=== PATIENT | female | born 1980 | race Caucasian/White ===

== ENCOUNTER 2017-04-04 10:02 | Emergency (ER) | payer BC, MEDICAID ==
[2017-04-04 10:07] VITALS: RESP 18; TEMP 99.4
[2017-04-04] MEDS ORDERED: KETOROLAC 30 MG/ML 1 ML VIAL IVP STA (10:35)
[2017-04-04] MEDS ORDERED: SODIUM CHLORIDE 0.9% 1,000 ML IV STA (10:35)
[2017-04-04] MEDS ORDERED: IPRATROPIUM-ALBUTEROL 3 ML NEB INHALATION STA (10:35)
--- NOTE | 2017-04-04 10:39 | ED ---
Chest Pain HPI - General Chief Complaint: Chest Pain Stated Complaint: Chest pain Time Seen by Provider: 04/04/17 10:25 Source: patient, RN notes reviewed Mode of arrival: ambulatory Limitations: no limitations - History of Present Illness Initial Comments: This is a 37-year-old female who benign past medical history states she had the onset yesterday of a cough with some minimal phlegm fevers chills sweats rhinorrhea laryngitis and burning midsternal chest pain gets worse with movement and deep breathing. She does not smoke she has no known history of lung disease she has some exertional dyspnea however. No other complaints at this time MD Complaint: chest pain, other - Related Data Previous Rx's Medication Instructions Recorded Amoxicillin/Potassium Clav 1 tab PO Q12HR #20 tab 04/04/17 [Augmentin 875-125 Tablet] Ibuprofen 800 mg PO Q6HR PRN #20 tablet 04/04/17 Allergies Allergy/AdvReac Type Severity Reaction Status Date / Time No Known Allergies Allergy Verified 04/04/17 10:15 Review of Systems ROS Statement: Those systems with pertinent positive or pertinent negative responses have been documented in the HPI. ROS Other: All systems not noted in ROS Statement are negative. EKG Findings - EKG Results: EKG: interpreted by SHADY, sinus rhythm (EKG shows sinus rhythm of 88 appear of 01 40 QRS duration 80 daily since QTC of 392/474 left atrial enlargement) Past Medical History Past Medical History: No Reported History History of Any Multi-Drug Resistant Organisms: None Reported Past Surgical History: Appendectomy, Section, Tonsillectomy Additional Past Surgical History / Comment(s): laparscopy Past Psychological History: No Psychological Hx Reported Smoking Status: Current every day smoker Past Alcohol Use History: Occasional Past Drug Use History: None Reported General Exam - General Exam Comments Initial Comments: This a well-developed well-nourished awake alert oriented 3 female Limitations: no limitations General appearance: alert, anxious Head exam: Present: atraumatic, normocephalic, normal inspection Eye exam: Present: normal appearance, PERRL, EOMI. Absent: scleral icterus, conjunctival injection, periorbital swelling ENT exam: Present: other (Hyperemic pharynx with no exudate seen. Small of fluid seen behind tympanic membranes bilaterally no erythema however. Boggy swollen nasal mucosa minimal clear drainage seen) Neck exam: Present: normal inspection. Absent: tenderness, meningismus, lymphadenopathy Respiratory exam: Present: decreased breath sounds Cardiovascular Exam: Present: normal rhythm, tachycardia, normal heart sounds. Absent: systolic murmur, diastolic murmur, rubs, gallop, clicks GI/Abdominal exam: Present: soft, normal bowel sounds. Absent: distended, tenderness, guarding, rebound, rigid Extremities exam: Present: normal inspection, full ROM, normal capillary refill. Absent: tenderness, pedal edema, joint swelling, calf tenderness Back exam: Present: normal inspection Neurological exam: Present: alert, oriented X3, CN II-XII intact Psychiatric exam: Present: normal affect, normal mood Skin exam: Present: warm, dry, intact, normal color. Absent: rash Course Vital Signs 04/04/17 04/04/17 04/04/17 10:04 10:46 10:52 Temperature 99.4 F Pulse Rate 109 H 104 H 100 Respiratory 18 Rate Blood Pressure 126/86 O2 Sat by Pulse 98 Oximetry Chest Pain MDM - MDM I did review the imaging and reports no acute findings no evidence of pulmonary embolism though the study was not perfect. Clinically patient appears to have sinusitis and bronchitis she does have elevated white blood cell count and the left shift indicative of a bacterial etiology patient will be placed on appropriate medication. Disposition Clinical Impression: Bronchitis, Nasopharyngitis acute Disposition: HOME SELF-CARE Condition: Good Instructions: Acute Bronchitis (ED), Rhinosinusitis (ED) Prescriptions: Amoxicillin/Potassium Clav [Augmentin 875-125 Tablet] 1 tab PO Q12HR #20 tab Ibuprofen 800 mg PO Q6HR PRN #20 tablet PRN Reason: Pain Referrals: Ina Jackson MD [REFERRING] - 1-2 days
[2017-04-04 11:01] LABS: Basophils % (A) 0 %; CH 28.3; CHCM 32.2; Eosinophils # (A) 0.1 k/uL (0-0.7); Eosinophils % (A) 1 %; HDW 2.66; HGB 12.7 gm/dL (11.4-16.0); Luc # (Auto) 0.16; Luc % (Auto) 1; Lymphocytes # (A) 1.4 k/uL (1.0-4.8); Lymphocytes % (A) 10 %; MCH 28.8 pg (25.0-35.0); MCHC 32.6 g/dL (31.0-37.0); MCV 88.3 fL (80.0-100.0); Mean Platelet Volume 8.2; Monocytes # (A) 0.6 k/uL (0-1.0); Monocytes % (A) 5 %; Neutrophils # (A) 11.9 k/uL (1.3-7.7); Neutrophils % (A) 84 %; RBC 4.42 m/uL (3.80-5.40); RDW 13.8 % (11.5-15.5); WBC 14.3 k/uL (3.8-10.6); WBC (Perox) 14.94
[2017-04-04 11:12] LABS: Anion Gap 10 mmol/L; Blood Urea Nitrogen 5 mg/dL (7-17); Calcium 9.4 mg/dL (8.4-10.2); Carbon Dioxide 25 mmol/L (22-30); Chloride 104 mmol/L (98-107); Glucose 95 mg/dL (74-99); Magnesium 1.8 mg/dL (1.6-2.3); Non-African American GFR(MDRD) >60 (>60 ml/min/1.73 sqM); Potassium 4.1 mmol/L (3.5-5.1); Sodium 139 mmol/L (137-145)
[2017-04-04 11:13] LABS: ALT 17 U/L (9-52); AST 16 U/L (14-36); Alkaline Phosphatase 70 U/L (38-126); Total Bilirubin 0.6 mg/dL (0.2-1.3); Total Protein 7.4 g/dL (6.3-8.2)
--- NOTE | 2017-04-04 11:15 | XR ---
EXAMINATION TYPE: XR chest 2V DATE OF EXAM: 04/04/2017 COMPARISON: 01/17/2013 HISTORY: Chest pain TECHNIQUE: Frontal and lateral views of the chest are obtained. FINDINGS: There is no focal air space opacity. No evidence for pneumothorax. No pleural effusion. The cardiac silhouette size is within normal limits. The osseous structures are grossly intact. IMPRESSION: 1. No acute cardiopulmonary process.
[2017-04-04 11:22] LABS: Creatine Kinase 70 U/L (30-135); Partial Thromboplastin Time 26.4 sec (22.0-30.0); Prothrombin Time 10.6 sec (9.0-12.0)
[2017-04-04 11:35] LABS: Creatine Kinase MB 0.6 ng/mL (0.0-2.4); Troponin I <0.012 ng/mL (0.000-0.034)
[2017-04-04] MEDS ORDERED: RX INFO: IV CONTRAST WAS GIVEN 1 EACH MISC MISCELLANE PRN (11:53)
--- NOTE | 2017-04-04 12:53 | CT ---
EXAMINATION TYPE: CT angio chest DATE OF EXAM: 04/04/2017 COMPARISON: NONE HISTORY: Chest pain, midsternal CT DLP: 353.70 mGycm. Automated Exposure Control for Dose Reduction was Utilized. CONTRAST: CTA scan of the thorax is performed with IV Contrast, patient injected with 100 ml mL of Omnipaque 30 0, pulmonary embolism protocol. MIP Images are created on CT scanner and reviewed. FINDINGS: LUNGS: There is minimal scarring or atelectasis in the left lower lobe particularly posteriorly other dorman lungs are clear. No suspicious parenchymal nodule or mass is present bilaterally. There is no pleural effusion or pneumothorax seen bilaterally. The tracheobronchial tree is patent. MEDIASTINUM: There is suboptimal bolus with poor equal contrast seen in right and left heart systems and more dense contrast in SVC. There is no large central pulmonary embolism, smaller segmental and s ubsegmental PE cannot be excluded on this exam. There are no greater than 1 cm hilar or mediastinal lymph nodes. No cardiomegaly or pericardial effusion is seen. OTHER: There is mild multilevel spurring in the thoracic spine. IMPRESSION: 1. Suboptimal study without central pulmonary embolism, smaller PE though felt not presently cannot b e excluded on this study. 2. No suspicious acute pulmonary process.
[2017-04-04 14:00] VITALS: BP 114/61; PULSE 81
== END 2017-04-04 13:58 | disposition home or self-care (01) ==
LOC: EC 10:02
DX: J00 Acute nasopharyngitis [common cold] (principal); J40 Bronchitis, not specified as acute or chronic; R07.9 Chest pain, unspecified; F17.200 Nicotine dependence, unspecified, uncomplicated
CPT/HCPCS: 99285 ×2; 96374 ×2; 36415; 94640; 93005; 85379; 83880; 80053; 82550; 82553; 83735; 84484; 85025; 85610; 85730; 87502; 71020; 71275; Q9967; J1885

== ENCOUNTER 2017-05-14 16:54 | Emergency (ER) | payer MEDICAID ==
[2017-05-14 17:20] VITALS: BP 127/63; PULSE 77; RESP 18; TEMP 98.5
--- NOTE | 2017-05-14 17:53 | ED ---
Lower Extremity Injury HPI - General Chief Complaint: Extremity Injury, Lower Stated Complaint: Knee Pain Time Seen by Provider: 05/14/17 17:42 Source: patient, RN notes reviewed Mode of arrival: ambulatory Limitations: no limitations - History of Present Illness Initial Comments: This is a 37-year-old female who presents to the emergency department with chief complaint of left knee injury. Patient states that on Friday she slipped in her kitchen. She states she tried to catch her fall and her left leg fully extended and she felt a snap behind her knee. Patient states that pain has gotten progressively worse over the last couple of days. She states that pain is worse when she walks on it for too long or if she goes from a sitting to standing position. Patient states pain is localized to to back of the knee, medial knee and behind the kneecap. She describes the pain as burning. She reports that she has tried using ice, Motrin and heat with minimal relief. Denies fever, chills, chest pain, shortness of breath, abdominal pain, nausea or vomiting, constipation or diarrhea, dysuria or hematuria, numbness or tingling, headache or vision changes. - Related Data Previous Rx's Medication Instructions Recorded Ibuprofen 800 mg PO Q6HR PRN #20 tablet 04/04/17 Allergies Allergy/AdvReac Type Severity Reaction Status Date / Time No Known Allergies Allergy Verified 05/14/17 17:19 Review of Systems ROS Statement: Those systems with pertinent positive or pertinent negative responses have been documented in the HPI. ROS Other: All systems not noted in ROS Statement are negative. Past Medical History Past Medical History: No Reported History History of Any Multi-Drug Resistant Organisms: None Reported Past Surgical History: Appendectomy, Section, Tonsillectomy Additional Past Surgical History / Comment(s): laparscopy Past Psychological History: No Psychological Hx Reported Smoking Status: Former smoker Past Alcohol Use History: None Reported Past Drug Use History: None Reported General Exam - General Exam Comments Initial Comments: General: Awake and alert, well-developed; in no apparent distress. HEENT: Head atraumatic, normocephalic. Pupils are equal, round and reactive to light. Extraocular movements intact. Neck: Supple. Normal ROM. Cardiovascular: Regular rate and rhythm. No murmurs, rubs or gallops. Chest symmetrical. Respiratory: Lungs clear to auscultation bilaterally. No wheezes, rales or rhonchi. Normal respiratory effort with no use of accessory muscles. Musculoskeletal: Patient has a limping gait. There is tenderness on palpation of posterior knee and medial knee. There is mild swelling noted without erythema. Pain is elicited with valgus stress and full extension/flexion of left knee. Sensation is intact. Pedal pulses are 2+ equal and palpable bilaterally. Skin: [place], warm and dry without rashes or lesions. Neurological: Alert and oriented x3. CN II-XII grossly intact. Speech is fluent and answers are appropriate. No focal neuro deficits. Psychiatric: Normal mood and affect. No overt signs of depression or anxiety noted. Limitations: no limitations Course Vital Signs 05/14/17 17:18 Temperature 98.5 F Pulse Rate 77 Respiratory 18 Rate Blood Pressure 127/63 O2 Sat by Pulse 98 Oximetry Medical Decision Making - Medical Decision Making This is a 37-year-old female who presents to the emergency department with chief complaint of left knee injury. Patient has a limping gait and knee is tender on palpation at medial and posterior aspects. Increased pain with valgus stress. X-ray revealed no acute abnormalities. Left knee was placed in a knee immobilizer. Patient tolerated well without complications. Neurovascularly intact. Patient will be discharged home with referral to orthopedics to follow up within 1-2 days. Patient is in agreement and voiced understanding. All questions were answered. - Radiology Data Radiology results: report reviewed Left knee x-ray findings: There is no acute fracture/dislocation evident in the left knee. The compartment joint spaces appear within normal limits. Overlying soft tissue appears unremarkable. Impression: There is no acute fracture dislocation of the left knee. No significant change from prior. Disposition Clinical Impression: Acute internal derangement of knee Disposition: HOME SELF-CARE Condition: Good Instructions: Knee Sprain (ED) Additional Instructions: Please follow up with Dr. Walters, orthopedics within 1-2 days. Please follow up with primary care provider within 1-2 days. Return to emergency department if symptoms should worsen or any concerns arise. Referrals: None,Stated [Primary Care Provider] - 1-2 days Lucio Walters MD [STAFF PHYSICIAN] - 1-2 days Time of Disposition: 18:30
--- NOTE | 2017-05-14 18:08 | XR ---
EXAMINATION TYPE: XR knee complete LT DATE OF EXAM: 05/14/2017 CLINICAL HISTORY: Left knee pain TECHNIQUE: Three views of the left knee are obtained. COMPARISON: Left knee x-ray February 11, 2015. FINDINGS: There is no acute fracture/dislocation evident in left knee. The tri-compartment joint sp aces appear within normal limits. The overlying soft tissue appears unremarkable. IMPRESSION: There is no acute fracture or dislocation in the left knee. No significant change from p rior.
== END 2017-05-14 18:40 | disposition home or self-care (01) ==
LOC: EC 16:54
DX: S89.92XA Unspecified injury of left lower leg, initial encounter (principal); Z87.891 Personal history of nicotine dependence; W01.0XXA Fall on same level from slipping, tripping and stumbling without subsequent striking against object, initial encounter; Y92.090 Kitchen in other non-institutional residence as the place of occurrence of the external cause
CPT/HCPCS: 99283; 73562; L1830

== ENCOUNTER 2017-08-14 12:50 | Emergency (ER) | payer MEDICAID ==
[2017-08-14 13:02] VITALS: RESP 20
[2017-08-14] MEDS ORDERED: IBUPROFEN 600 MG TAB PO STA (13:16)
[2017-08-14] MEDS ORDERED: ACETAMINOPHEN TAB 500 MG TAB PO STA (13:16)
--- NOTE | 2017-08-14 13:40 | ED ---
URI HPI - General Chief Complaint: Upper Respiratory Infection Stated Complaint: Fever/Cough/Sore Throat Time Seen by Provider: 08/14/17 13:16 Source: patient, RN notes reviewed, old records reviewed Mode of arrival: ambulatory Limitations: no limitations - History of Present Illness Initial Comments: This is a 37 year old female with CC of cough, congestion, fever, chills, sorethroat, diarrhea, and nausea. She states she has had the symptoms for one day. Family members have had the influenza A. She reports no recent motrin or tylenol. - Related Data Previous Rx's Medication Instructions Recorded Ibuprofen 600 mg PO TID #30 tablet 08/14/17 Oseltamivir [Tamiflu] 75 mg PO Q12HR #10 cap 08/14/17 Promethazine/Dextromethorphan 5 ml PO TID #120 ml 08/14/17 [Phenergan DM Syrup] Allergies Allergy/AdvReac Type Severity Reaction Status Date / Time No Known Allergies Allergy Verified 08/14/17 12:59 Review of Systems ROS Statement: Those systems with pertinent positive or pertinent negative responses have been documented in the HPI. ROS Other: All systems not noted in ROS Statement are negative. Past Medical History Past Medical History: No Reported History History of Any Multi-Drug Resistant Organisms: None Reported Past Surgical History: Appendectomy, Section, Tonsillectomy Additional Past Surgical History / Comment(s): laparscopy Past Psychological History: No Psychological Hx Reported Smoking Status: Former smoker Past Alcohol Use History: None Reported Past Drug Use History: None Reported General Exam - General Exam Comments Initial Comments: Well-appearing 37-year-old female. No distress. Limitations: no limitations General appearance: alert, in no apparent distress Head exam: Present: atraumatic, normocephalic, normal inspection Eye exam: Present: normal appearance, PERRL, EOMI. Absent: scleral icterus, conjunctival injection, periorbital swelling ENT exam: Present: normal exam, mucous membranes moist Neck exam: Present: normal inspection. Absent: tenderness, meningismus, lymphadenopathy Respiratory exam: Present: normal lung sounds bilaterally. Absent: respiratory distress, wheezes, rales, rhonchi, stridor Cardiovascular Exam: Present: regular rate, normal rhythm, normal heart sounds. Absent: systolic murmur, diastolic murmur, rubs, gallop, clicks GI/Abdominal exam: Present: soft, normal bowel sounds. Absent: distended, tenderness, guarding, rebound, rigid Extremities exam: Present: normal inspection, full ROM, normal capillary refill. Absent: tenderness, pedal edema, joint swelling, calf tenderness Back exam: Present: normal inspection Neurological exam: Present: alert, oriented X3, CN II-XII intact Psychiatric exam: Present: normal affect, normal mood Skin exam: Present: warm, dry, intact, normal color. Absent: rash Course Vital Signs 08/14/17 08/14/17 12:59 14:23 Temperature 99.9 F H 99.2 F Pulse Rate 100 89 Respiratory 20 20 Rate Blood Pressure 114/79 101/55 O2 Sat by Pulse 97 99 Oximetry Medical Decision Making - Medical Decision Making This patient is a 37-year-old female presents today to complete of fever chills congestion cough. You watch is a sore throat. All of her family members had influenza a. Patient was sent down from her office at the hospital for testing. Patient chest x-ray was really normal. Once you clear. Patient had a fever, was given Motrin and Tylenol. It's likely patient has influenza. Will treat her with TAmiflu. Discuss supportive measures. Discussed return parameters. All questions were answered. - Radiology Data Radiology results: report reviewed Patient's chest x-ray is negative for any acute process. Disposition Clinical Impression: Influenza Disposition: HOME SELF-CARE Condition: Good Instructions: Influenza (ED) Additional Instructions: Patient is alternate Motrin and Tylenol every 4 hours. Take Tamiflu prescription and use cough syrup as directed. Patient should return to the emergency department if any alarming signs or symptoms occur. Prescriptions: Ibuprofen 600 mg PO TID #30 tablet Oseltamivir [Tamiflu] 75 mg PO Q12HR #10 cap Promethazine/Dextromethorphan [Phenergan DM Syrup] 5 ml PO TID #120 ml Referrals: None,Stated [Primary Care Provider] - 1-2 days Migdalia Morris MD [STAFF PHYSICIAN] - 1-2 days Ean Emmanuel MD [STAFF PHYSICIAN] - 1-2 days Time of Disposition: 14:13
--- NOTE | 2017-08-14 14:12 | XR ---
EXAMINATION TYPE: XR chest 2V DATE OF EXAM: 08/14/2017 COMPARISON: 04/04/2017 HISTORY: Chest pain TECHNIQUE: Frontal and lateral views of the chest are obtained. FINDINGS: There is no focal air space opacity. No evidence for pneumothorax. No pleural effusion. The cardiac silhouette size is within normal limits. The osseous structures are grossly intact. IMPRESSION: 1. No acute cardiopulmonary process.
[2017-08-14 14:24] VITALS: BP 101/55; PULSE 89; TEMP 99.2
== END 2017-08-14 14:23 | disposition home or self-care (01) ==
LOC: EC 12:50
DX: J11.1 Influenza due to unidentified influenza virus with other respiratory manifestations (principal); Z87.891 Personal history of nicotine dependence; Z90.89 Acquired absence of other organs; Z83.1 Family history of other infectious and parasitic diseases
CPT/HCPCS: 71046; 99284

== ENCOUNTER 2017-10-06 07:59 | Emergency (ER) | payer MEDICAID ==
[2017-10-06] MEDS ORDERED: ORPHENADRINE 30 MG/ML 2 ML VIAL IM STA (08:26)
[2017-10-06] MEDS ORDERED: KETOROLAC 60 MG/2 ML VIAL IM STA (08:26)
--- NOTE | 2017-10-06 08:30 | ED ---
Back Pain HPI - General Chief Complaint: Back Pain/Injury Stated Complaint: Back pain Time Seen by Provider: 10/06/17 08:15 Source: patient, RN notes reviewed, old records reviewed Limitations: no limitations - History of Present Illness Initial Comments: this is a 29-year-old female presents emergency department today chief complaint of lower back pain. She reports that on Friday morning she is bending over to put her granddaughter in her playpen.she states that she felt a pull in her lower back. She states since then she's been having some pain way down the left leg. She has a history of known degenerative disc disease. She' s been taking naproxen. She reports very little relief. She denies any saddle anesthesias. Denies any chest pain shortness breath, abdominal pain or change in urination. She relates the pain is worse with movements.Patient denies any recent fever, chills, shortness of breath, chest pain, abdominal pain, nausea vomiting, numbness or tingling, dysuria or hematuria, constipation or diarrhea, headaches or visual changes, or any other current symptoms - Related Data Previous Rx's Medication Instructions Recorded Acetaminophen-Codeine 300-30mg 1 tab PO Q6H PRN #15 tablet 10/06/17 [Tylenol #3] Baclofen [Lioresal] 5 mg PO TID #15 tablet 10/06/17 Dexamethasone 0.75 mg PO DAILY #12 tab 10/06/17 Allergies Allergy/AdvReac Type Severity Reaction Status Date / Time No Known Allergies Allergy Verified 10/06/17 08:09 Review of Systems ROS Statement: Those systems with pertinent positive or pertinent negative responses have been documented in the HPI. ROS Other: All systems not noted in ROS Statement are negative. Past Medical History Past Medical History: No Reported History History of Any Multi-Drug Resistant Organisms: None Reported Past Surgical History: Appendectomy, Section, Tonsillectomy Additional Past Surgical History / Comment(s): laparscopy Past Psychological History: No Psychological Hx Reported Smoking Status: Former smoker Past Alcohol Use History: Occasional Past Drug Use History: None Reported General Exam - General Exam Comments Initial Comments: this is a 29-year-old female. Alert and oriented. No distress. Limitations: no limitations General appearance: alert, in no apparent distress Head exam: Present: atraumatic, normocephalic, normal inspection Eye exam: Present: normal appearance, PERRL, EOMI. Absent: scleral icterus, conjunctival injection, periorbital swelling ENT exam: Present: normal exam, mucous membranes moist Neck exam: Present: normal inspection. Absent: tenderness, meningismus, lymphadenopathy Respiratory exam: Present: normal lung sounds bilaterally. Absent: respiratory distress, wheezes, rales, rhonchi, stridor Cardiovascular Exam: Present: regular rate, normal rhythm, normal heart sounds. Absent: systolic murmur, diastolic murmur, rubs, gallop, clicks Extremities exam: Present: normal inspection, full ROM, normal capillary refill. Absent: tenderness, pedal edema, joint swelling, calf tenderness Back exam: Present: normal inspection, tenderness (tenderness over left sciatic notch.) Neurological exam: Present: alert, oriented X3, CN II-XII intact Psychiatric exam: Present: normal affect, normal mood Skin exam: Present: warm, dry, intact, normal color. Absent: rash Course Vital Signs 10/06/17 08:07 Temperature 97.8 F Pulse Rate 96 Respiratory 18 Rate Blood Pressure 127/73 O2 Sat by Pulse 97 Oximetry Medical Decision Making - Medical Decision Making 29-year-old female presents for a steroid today chief complaint of lower back pain radiates down the left leg. Patient was given IM pain injections including Norflex and Toradol. She reports some mild relief. At this time patient is x-ray showed degenerative changes at L5-S1 but no other fractures noted. Patient will be started on steroid taper, pulse relaxers and pain medication. Discussed appropriate follow-up with primary care provider about possibility of [place]. Discussed using stretching methods and massage. Patient agrees to treatment plan will comply. Return parameters were discussed. - Radiology Data Radiology results: report reviewed Lumbar spine x-rays reviewed and shows no fractures or dislocation. Moderate degenerative changes and L5-S1. Disposition Clinical Impression: Acute low back pain, Left sided sciatica Disposition: HOME SELF-CARE Condition: Good Instructions: Acute Low Back Pain (ED), Sciatica (ED) Additional Instructions: patient is to alternate heat and ice. Take the medications as prescribed. Follow-up with primary care physician or orthopedic physician if symptoms continue persist. Return to the emergency department if any alarming signs or symptoms occur. Prescriptions: Acetaminophen-Codeine 300-30mg [Tylenol #3] 1 tab PO Q6H PRN #15 tablet PRN Reason: Pain Baclofen [Lioresal] 5 mg PO TID #15 tablet Dexamethasone 0.75 mg PO DAILY #12 tab Referrals: None,Stated [Primary Care Provider] - 1-2 days Migdalia Morris MD [STAFF PHYSICIAN] - 1-2 days Timur Cox MD [STAFF PHYSICIAN] - 1-2 days Time of Disposition: 09:07
--- NOTE | 2017-10-06 08:59 | XR ---
EXAMINATION TYPE: XR lumbar spine 2 or 3V DATE OF EXAM: 10/06/2017 CLINICAL HISTORY: pain TECHNIQUE: Three views of the lumbar spine are submitted. COMPARISON: None. FINDINGS: There are 5 lumbar type vertebral bodies identified. The lumbar spine shows satisfactory alignment w ithout evidence of acute fracture or dislocation. Vertebral body heights are within normal limits. Moderate degenerative narrowing L5-S1. The overlying soft tissue appears unremarkable. IMPRESSION: No acute fracture or dislocation is seen in the lumbar spine. ICD 10 NO FRACTURE, INITIAL EVALUATION
[2017-10-06 09:19] VITALS: BP 118/61; PULSE 72; RESP 16; TEMP 97.9
== END 2017-10-06 09:19 | disposition home or self-care (01) ==
LOC: EC 07:59
DX: M54.42 Lumbago with sciatica, left side (principal); Z87.891 Personal history of nicotine dependence; X50.1XXA Overexertion from prolonged static or awkward postures, initial encounter
CPT/HCPCS: 72100; 99284; 96372 ×2; J2360; J1885

== ENCOUNTER → 2017-10-30 | Outpatient (CLI) | payer MEDICAID ==
--- NOTE | 2017-11-02 13:18 | MR ---
EXAMINATION TYPE: MR lumbar spine wo con DATE OF EXAM: 10/30/2017 COMPARISON: Radiograph's of the lumbar spine dated 10/06/2017 MRI dated 01/31/2016 on the lumbar spine HISTORY: LBP, BLE radiculopathy, lifting injury 1 mo ago TECHNIQUE: Multiplanar, multisequence images of the lumbar spine were acquired. FINDINGS: The lumbar vertebral bodies maintain normal vertebral body height and alignment. Mild multi level degenerative endplate changes are seen that are moderate tip to. Otherwise bone marrow is unrem arkable. Multilevel disc desiccation is seen. A small T2/T1 hyperintense vertebral body hemangioma se en of L1 unchanged from the prior. 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 Conus medullaris is un remarkable terminating at L1. L1-L2: Mild disc desiccation. No herniation, protrusion or disc bulging. No canal stenosis is prese nt. Foramina are patent bilaterally. L2-L3: Mild disc desiccation. No herniation, protrusion or disc bulging. No canal stenosis is prese nt. Foramina are patent bilaterally. L3-L4: There is a very small broad-based disc bulge without significant neural foraminal narrowing or spinal canal stenosis. L4-L5: There is a broad-based disc bulge without focality. No significant neural foraminal stenosis o r spinal canal stenosis. L5-S1: There is a focal central disc herniation/disc protrusion superimposed upon a broad-based disc bulge with central annular tear. Again there is minimal minimal foraminal narrowing. No significant s ryan canal stenosis. This is similar to the prior 2016. IMPRESSION: 1. Small central disc herniation at L5-S1, similar to the prior of 2016, creating minimal neural fora shayla narrowing and without significant spinal canal stenosis. 2. Mild progression in the multilevel disc disease with disc desiccation throughout the lumbar spine and new small broad-based disc bulges at L3-L5 without spinal canal stenosis or neural foraminal narr owing.
== END | disposition home or self-care (01) ==
LOC: RADMRIMAIN 18:29
PROVIDERS: ATTEND Physical Medicine & Rehabilitation
DX: M99.73 Connective tissue and disc stenosis of intervertebral foramina of lumbar region (principal); M51.16 Intervertebral disc disorders with radiculopathy, lumbar region
CPT/HCPCS: 72148

== ENCOUNTER → 2018-01-19 | Outpatient (CLI) | payer MEDICAID ==
[2018-01-19 14:03] LABS: Appearance,Urine Clear (Clear); Basophils % (A) 1 %; Bilirubin,Urine Negative (Negative); Blood,Urine Negative (Negative); Color,Urine Yellow; Eosinophils # (A) 0.1 k/uL (0-0.7); Eosinophils % (A) 1 %; Glucose,Urine (UA) Negative (Negative); HCT 39.2 % (34.0-46.0); HGB 12.3 gm/dL (11.4-16.0); Ketones,Urine Negative (Negative); Leukocyte Esterase,Urine Negative (Negative); Lymphocytes # (A) 1.6 k/uL (1.0-4.8); Lymphocytes % (A) 22 %; MCHC 31.5 g/dL (31.0-37.0); MCV 85.8 fL (80.0-100.0); Mean Platelet Volume 7.2; Monocytes # (A) 0.4 k/uL (0-1.0); Monocytes % (A) 6 %; Neutrophils # (A) 5.1 k/uL (1.3-7.7); Neutrophils % (A) 69 %; Nitrite,Urine Negative (Negative); PH, Urine 6.5 (5.0-8.0); Platelet Count 318 k/uL (150-450); Protein,Urine Negative (Negative); RBC 4.57 m/uL (3.80-5.40); RDW 14.9 % (11.5-15.5); Specific Gravity,Urine 1.014 (1.001-1.035); Urobilinogen,Urine <2.0 mg/dL (<2.0); WBC 7.4 k/uL (3.8-10.6)
[2018-01-19 14:08] LABS: Partial Thromboplastin Time 24.2 sec (22.0-30.0); Prothrombin Time 9.9 sec (9.0-12.0)
[2018-01-19 14:11] LABS: Anion Gap 8 mmol/L; Blood Urea Nitrogen 9 mg/dL (7-17); Calcium 9.6 mg/dL (8.4-10.2); Carbon Dioxide 27 mmol/L (22-30); Chloride 101 mmol/L (98-107); Glucose 90 mg/dL (74-99); Potassium 4.5 mmol/L (3.5-5.1); Sodium 136 mmol/L (137-145)
[2018-01-19 14:27] LABS: HCG,Quantitative Serum <2.4 mIU/mL
--- NOTE | 2018-01-19 16:00 | XR ---
EXAMINATION TYPE: XR chest 2V DATE OF EXAM: 01/19/2018 COMPARISON: 08/14/2017 HISTORY: 37-year-old female presurgical testing TECHNIQUE: Frontal and lateral views FINDINGS: Heart normal size. Aorta and pulmonary vasculature within normal limits. No consolidation or pleural effusion. IMPRESSION: No acute cardiopulmonary process.
== END | disposition home or self-care (01) ==
LOC: LABPAT 12:50
PROVIDERS: ATTEND Orthopaedic Surgery Orthopaedic Surgery of the Spine
DX: Z01.818 Encounter for other preprocedural examination (principal); Z01.812 Encounter for preprocedural laboratory examination; M51.36 Other intervertebral disc degeneration, lumbar region; M54.5 Low back pain
CPT/HCPCS: 36415; 71046; 80048; 81003; 84702; 85025; 85610; 85730; 87070

== ENCOUNTER 2018-01-28 08:49 | Inpatient (IN) | payer MEDICAID ==
[2018-01-19 11:03] VITALS: BMI 33.5
[~2018-01-28 08:49] MED LIST: BACITRACIN 50,000 UNIT, POLYMYXIN B 500,000 UNIT in SODIUM CHLORIDE 0.9% IRRIGATIO 1,00... IRRIGATION ONE; DEXAMETHASONE SOD PHOSPHATE 10 MG/ML 1 ML VIAL IV ONE; LIDOCAINE 1% 20 ML VIAL (10MG/ML) FOR IV START INTRADERMA PRN; MIDAZOLAM 2 MG/2 ML VIAL IV PRN; ONDANSETRON 4 MG/2 ML VIAL IVP ONE; SCOPOLAMINE 1.5MG/72HR PATCH TRANSDERM ONE; ceFAZolin 2 GM in SODIUM CHLORIDE 0.9% 100 ML IVPB ONE; ceFAZolin IN SWFI 2 GM/20 ML SYRINGE IVP ONE
[2018-01-28] MEDS: LACTATED RINGERS 1,000 ML IV SCH (09:25)
[2018-01-28] MEDS ORDERED: PHENYLEPHRINE-0.9% NACL SYG 1 MG/10 ML SYRINGE ONE (11:06)
[2018-01-28] MEDS ORDERED: ROCURONIUM BROMIDE 10 MG/ML 10 ML VIAL IV ONE (11:06)
[2018-01-28] MEDS ORDERED: LIDOCAINE 1% INJ 10MG/ML (20 ML MDV) ONE (11:06)
[2018-01-28] MEDS ORDERED: SUCCINYLCHOLINE CHLORIDE 100 MG/5 ML SYR IV ONE (11:06)
[2018-01-28] MEDS ORDERED: MEPERIDINE 50 MG/ML SYRINGE ONE (11:06)
[2018-01-28] MEDS ORDERED: PROPOFOL 10 MG/ML 20 ML VIAL IV ONE (11:06)
[2018-01-28] MEDS ORDERED: fentaNYL (PF) 50 MCG/ML 2 ML AMP ONE (11:06)
[2018-01-28] MEDS ORDERED: MIDAZOLAM 2 MG/2 ML VIAL ONE (11:06)
[2018-01-28] MEDS ORDERED: GELATIN SPONGE,ABSORB (LARGE) 1 EACH SPONGE TOPICAL ONE (11:25)
[2018-01-28] MEDS ORDERED: THROMBIN (BOVINE) 5,000 UNIT VIAL TOPICAL ONE (11:25)
[2018-01-28] MEDS ORDERED: LIDOCAINE 0.5%-EPI 1:200,000 50 ML VIAL SQ ONE (11:25)
[2018-01-28] MEDS ORDERED: LACTATED RINGERS 1,000 ML IV ONE ×2 (11:43→14:29)
--- NOTE | 2018-01-28 13:26 | FL ---
EXAMINATION TYPE: FL guidance operating room, XR lumbar spine 2 or 3V DATE OF EXAM: 01/28/2018 CLINICAL HISTORY: Lumbosacral fusion TECHNIQUE: Fluoroscopy. COMPARISON: None. FINDINGS/IMPRESSION: Fluoroscopic guidance was provided during procedure performed by Dr. Sy. A total of 49 seconds of fluoroscopic time was utilized during the procedure and 5 spot images was acqu ired demonstrating localization of the lumbosacral spine and fusion of the L5-S1 vertebral levels.
[2018-01-28] MEDS ORDERED: HYDROmorphone 1 MG/ML 1 ML SYRINGE IVP PRN (13:40)
[2018-01-28] MEDS ORDERED: MAGNESIUM HYDROXIDE 2,400 MG/10 ML CUP PO PRN (13:40)
[2018-01-28] MEDS ORDERED: BENZOCAINE/MENTHOL LOZENG 1 EACH LOZENGE MUCOUS MEM PRN (13:40)
[2018-01-28] MEDS ORDERED: HYDROcodone/APAP 5-325MG 1 EACH TAB PO PRN (13:41)
[2018-01-28] MEDS ORDERED: ONDANSETRON 4 MG/2 ML VIAL IVP PRN (13:41)
--- NOTE | 2018-01-28 13:50 | P.OP ---
Date of Procedure: 01/28/18 Preoperative Diagnosis: Spondylolisthesis L5-S1, degenerative disc disease L5-S1, low back and lower extremity radiculopathy, disc herniation L5-S1 Postoperative Diagnosis: Same Anesthesia: GETA Pathology: none sent Condition: stable Disposition: PACU Description of Procedure: DESCRIPTION OF PROCEDURE(S): BRIEF OPERATIVE NOTE Preoperative Diagnosis: Degenerative disc disease L5-S1, listhesis L5-S1, disc herniation L5-S1, low back and lower extremity radiculopathy Postoperative Diagnosis: Same Procedure: Laminectomy and decompression L5-S1 Minimally invasive Posterior lateral decompression and facet fusion L5-S1 Minimally invasive Transforaminal lumbar interbody fusion for a 360 fusion L5-S1 Discectomy for decompression L5-S1 Placement of interbody graft L5-S1 Local autogenous bone grafting Harvesting of bone marrow aspirate L5 vertebral body Use of bone graft extenders Surgeon: Dr. Sy Carpenters Supervisor: Ceasar GAGE who is present throughout the entire the case persistence during positioning, dissection, exposure, visualization, and all crucial elements of the case as well as closure. Anesthesia: General anesthesia Estimated blood loss: approximately 100 mL Complications: None apparent Components implanted: K2M minimally invasive Catano pedicle screw system with 4 screws measuring 6.5 mm diameter to rods and 1 Reading interbody cage measuring 7 mm Disposition: To recovery room in good stable condition. OPERATIVE INDICATIONS The patient has had long-standing issues in their lower back and lower extremities. she is found have advanced disc degeneration at L5-S1 with some Modic endplate just. There is some dynamic listhesis as well. She had significant back pain with lower extremity radiculopathy which correlated with her low back and lower extremity symptoms. She is having progressive symptoms despite aggressive conservative care. The patient has been through conservative treatment. she is not having any lasting benefit despite conservative management. We discussed various treatment options including surgery, and the patient wishes to proceed with surgery We discussed the risk, patient's alternatives and benefits of surgery including but not limited to, risk of bleeding risk of infection, risk of need for further surgery, risk of decreased, loss of motion, muscle function, malunion nonunion, hardware failure , nerve damage, paralysis, heart attack, blindness and . OPERATIVE SUMMARY After discussing all the risks, patient alternatives and benefits at length, the patient elected to proceed with surgical intervention, signed informed consent, and presented for their procedure. The patient was seen and examined in the preoperative holding area and the surgical site was marked. The patient was given antibiotics and brought to the operating room. The patient was sedated and intubated by anesthesia in standard fashion. The patient was positioned on to the operating room table in a prone position on the appropriate frame which was well-padded and well molded. We were careful to pad any bony prominences and pressure points. We were careful to maintain the patient's cervical spine and good neutral alignment and position throughout. The patient was prepped and draped in a normal standard fashion. An appropriate timeout and keystone protocol performed. We were able to proceed with the surgery. The local wound area was infiltrated with local anesthetic. I was able utilize C-arm guidance to establish appropriate position over the pedicles bilaterally at the appropriate levels Of L5 and S1. With the appropriate levels confirmed was able to make small stab incisions over the appropriate pedicle sites bilaterally. Utilizing C-arm in his house able to establish a Jamshidi needle over the lateral aspect of the pedicle and advanced the trocar into the pedicle being careful not to breech superiorly inferiorly medially or laterally. Position was confirmed regularly with AP and lateral images on C-arm. I made bilateral incisions approximately 3 cm in length bilaterally over L5-S1. I was able to establish the trocar into the pedicle appropriately into the posterior aspect of the vertebral body bilaterally at the appropriate levels. This was done at each of the pedicle positions and each of the vertebrae. I was able place the guidewire into the trocar and into the vertebral body appropriately under C-arm guidance. Dissection was taken down over the wire to the appropriate starting position for the screw placed. The appropriate length screw was chosen, threaded over the guidewire and screwed appropriately into the pedicle and vertebral body under C-arm guidance in excellent alignment and position with good bony purchase. This is done at each of the screw sites at the appropriate levelsAt L5 and S1 bilaterally. With the screws intact I extended the incision to connect the screw hole sites on the most symptomatic side On the left. I dissected down to establish access over the pars and lamina to the base of the spinous process. I was able to expose the facet joint. The capsule the facet was taken down and showed some facet arthrosis at the joint. I was able to use a combination of curettes and Kerrison rongeurs and a high-speed drill to take down the facet joint and do a facetectomy. Partial laminectomy was also performed. I was able get excellent foraminal decompression and central decompression with undermining across midline to perform a laminectomy centrally and contralaterally. As able get good central decompression. The ligamentum flavum was taken down to further decompress centrally and at bilateral neural foramen. I was able to expose the disc space and visualize the traversing nerve root. Note was made of some disc protrusion at the level causing further compression of the nerve root. I was able to establish a annulotomy at the appropriate level protecting soft tissue and neural structures. Note was made of some disc desiccation at the disc. I performed a complete discectomy with accommodation of curettes and rasps and scrapers. the discectomy provided further decompression. I was able get good endplate preparation at the disc space. there was severe disc height loss and significant disc loss at the L5-S1 interbody space. I sized for the appropriate size interbody spacer protecting the soft tissue and neural structures. The wound was copiously irrigated and suctioned dry. There is no evidence of any dural tear or leak. I was able to pack the disc space with local autogenous bone graft as well as a small amount of bone graft which was also placed into the interbody cage itself. Protecting the soft tissue structures and neural structures I was able place the interbody cage in good alignment and good position with good fit and fill at the interbody space. it was well seated without any protrusion. His issues was confirmed with C-arm guidance. Good hemostasis maintained. There is no evidence of any dural tear or leak. The wound was irrigated and suctioned dry. With the hardware intact, intraoperative C-arm imaging was again taken which showed good alignment and position of the hardware at the appropriate levels At L5 and S1. We were then able to measure, contour and place the rods and appropriate hardware bilaterally. I was able to place capcrews, tighten them down, and torque them with the torque screwdriver appropriately. With this intact I was able to place the local autogenous bone graft with additional bone graft enhancer as necessary into the posterior lateral gutters and over the decorticated facet joint on the right. The remainder of the bone graft was placed over the facet joint on the contralateral side after taking down the facet joint capsule. With the bone graft intact, a stable construct, and good decompression at the appropriate levels, we were able to proceed with closure. Good hemostasis was maintained. There is no evidence of dural tear or leak. The fascia was closed for a watertight closure. he subcuticular tissue was closed with absorbable suture. The wound was cleaned and dried and dressed with the appropriate dressing. The drapes were broken down. The patient was gently rolled back onto their hospital bed being careful to maintain their cervical spine and good neutral alignment and position. They were woken up by anesthesia, extubated, and brought to the recovery room in good stable condition. The patient will be admitted to the hospital for appropriate postoperative care , medical management and monitoring. We will continue to follow them closely about the postoperative course.
[2018-01-28] MEDS: HYDROmorphone 0.5 MG/0.5 ML SYRINGE IVP PRN ×2 (14:15→14:28)
[2018-01-28] MEDS: SODIUM CHLORIDE 0.9% 1,000 ML IV SCH (15:03)
[2018-01-28] MEDS: HYDROcodone/APAP 5-325MG 1 EACH TAB PO PRN ×2 (15:08→20:43)
--- NOTE | 2018-01-28 15:57 | P.CONS ---
History of Present Illness - Reason for Consult Hypotension - History of Present Illness Patient is a pleasant 37-year-old female underwent L5-S1, decompression and facet fusion procedure for her chronic low back pain with severe radiculopathy. Postoperatively patient is comparing of severe low back pain and just received [place]. Patient denied any fever chills patient had pass gas, just came out of for or. Still groggy from anesthesia. Does have a Bob catheter in place. No surgical drains Review of Systems REVIEW OF SYSTEMS: CONSTITUTIONAL: No fever, no malaise, no fatigue. HEENT: No recent visual problems or hearing problems. Denied any sore throat. CARDIOVASCULAR: No chest pain, orthopnea, PND, no palpitations, no syncope. PULMONARY: No shortness of breath, no cough, no hemoptysis. GASTROINTESTINAL: No diarrhea, no nausea, no vomiting, no abdominal pain. Normoactive bowel sounds. NEUROLOGICAL: No headaches, no weakness, no numbness. HEMATOLOGICAL: Denies any bleeding or petechiae. GENITOURINARY: Denies any burning micturition, frequency, or urgency. MUSCULOSKELETAL/RHEUMATOLOGICAL: As mentioned in HPI ENDOCRINE: Denies any polyuria or polydipsia. The rest of the 14-point review of systems is negative. Past Medical History Past Medical History: No Reported History Additional Past Medical History / Comment(s): occ low blood pressure, bulging disk, degenerative disk disease, getting numbness and shooting pain down both legs History of Any Multi-Drug Resistant Organisms: None Reported Past Surgical History: Appendectomy, Section, Tonsillectomy Additional Past Surgical History / Comment(s): laparoscopy (5-6) for ovarian cyst/endometriosis Past Anesthesia/Blood Transfusion Reactions: Previous Problems w/ Anesthesia, Motion Sickness, Postoperative Nausea & Vomiting (PONV) Additional Past Anesthesia/Blood Transfusion Reaction / Comm: woke up during tonsilectomy Smoking Status: Former smoker - Past Family History Sister(s) Family Medical History: Cancer Additional Family Medical History / Comment(s): skin Medications and Allergies Home Medications Medication Instructions Recorded Confirmed Type Ibuprofen 400 mg PO HS 01/19/18 01/28/18 History Allergies Allergy/AdvReac Type Severity Reaction Status Date / Time No Known Allergies Allergy Verified 01/28/18 09:02 Physical Exam Vitals: Vital Signs Temp Pulse Pulse Resp BP Pulse Ox 01/28/18 14:30 72 18 98/55 94 L 01/28/18 14:15 75 18 99/55 95 01/28/18 14:00 81 16 95/53 96 01/28/18 13:46 83 16 98/53 100 01/28/18 13:35 97.6 F 91 16 108/56 100 01/28/18 10:30 71 16 100 01/28/18 09:11 98.1 F 76 115/67 99 Intake and Output 01/28/18 01/28/18 01/28/18 06:59 14:59 22:59 Intake Total 2000 Output Total 325 Balance 1676 Intake: IV 2000 Output: Urine 275 Estimated Blood Loss 50 PHYSICAL EXAMINATION: GENERAL: The patient is alert and oriented x3, not in any acute distress. Well developed, well nourished. HEENT: Pupils are round and equally reacting to light. EOMI. No scleral icterus. No conjunctival pallor. Normocephalic, atraumatic. No pharyngeal erythema. No thyromegaly. CARDIOVASCULAR: S1 and S2 present. No murmurs, rubs, or gallops. PULMONARY: Chest is clear to auscultation, no wheezing or crackles. ABDOMEN: Soft, nontender, nondistended, normoactive bowel sounds. No palpable organomegaly. MUSCULOSKELETAL: Deferred to orthopedic surgery EXTREMITIES: No cyanosis, clubbing, or pedal edema. NEUROLOGICAL: Gross neurological examination did not reveal any focal deficits. SKIN: No rashes. Assessment and Plan Plan: -Perioperative hypotension: Expected postoperatively, continue with IV fluids at present rate monitor clinically. -Status post lumbar laminectomy, decompression L5-S1 with facet fusion: Postoperative pain management and DVT prophylaxis as per primary service -Obesity: Dietary Counseling was provided
[2018-01-28] MEDS: CYCLOBENZAPRINE 10 MG TAB PO PRN (16:52)
[2018-01-28] MEDS: ceFAZolin IN SWFI 2 GM/20 ML SYRINGE IVP SCH (17:58)
[2018-01-28] MEDS: HYDROmorphone 1 MG/ML 1 ML SYRINGE IVP PRN ×2 (18:02→22:39)
[2018-01-29] MEDS: HYDROcodone/APAP 5-325MG 1 EACH TAB PO PRN ×4 (01:24→17:36)
[2018-01-29] MEDS: ceFAZolin IN SWFI 2 GM/20 ML SYRINGE IVP SCH (02:28)
[2018-01-29] MEDS: LACTATED RINGERS 1,000 ML IV SCH (05:27)
[2018-01-29] MEDS: SODIUM CHLORIDE 0.9% 1,000 ML IV SCH ×2 (05:37→17:55)
[2018-01-29 07:05] LABS: Basophils % (A) 0 %; Eosinophils # (A) 0.1 k/uL (0-0.7); Eosinophils % (A) 1 %; HCT 31.6 % (34.0-46.0); HGB 10.3 gm/dL (11.4-16.0); Lymphocytes # (A) 1.6 k/uL (1.0-4.8); Lymphocytes % (A) 17 %; MCH 28.5 pg (25.0-35.0); MCHC 32.5 g/dL (31.0-37.0); MCV 87.6 fL (80.0-100.0); Mean Platelet Volume 8.5; Monocytes # (A) 0.6 k/uL (0-1.0); Monocytes % (A) 6 %; Neutrophils % (A) 75 %; Platelet Count 242 k/uL (150-450); RBC 3.61 m/uL (3.80-5.40); WBC 9.4 k/uL (3.8-10.6)
[2018-01-29 07:14] LABS: Anion Gap 7 mmol/L; Blood Urea Nitrogen 6 mg/dL (7-17); Calcium 8.5 mg/dL (8.4-10.2); Carbon Dioxide 24 mmol/L (22-30); Chloride 105 mmol/L (98-107); Glucose 94 mg/dL (74-99); Sodium 136 mmol/L (137-145)
[2018-01-29] MEDS: HYDROmorphone 1 MG/ML 1 ML SYRINGE IVP PRN ×3 (08:34→23:05)
--- NOTE | 2018-01-29 09:10 | P.PN ---
Progress Note - Text Progress Note Date: 01/29/18 Postoperative day #1 Patient is seen and examined today at bedside. The patient has some pain around the surgical site as expected. Pain is being controlled with medication. She has been able to get up to urinate. She has not had any nausea or vomiting. She was able tolerate some diet for breakfast Physical Exam Afebrile with stable vital signs Abdomen is soft nontender. Chest has good excursion deep and space expiration The incision site is clean dry and intact. No erythema there is no purulence. The initial dressing is somewhat saturated but it is so well sealed. There is no active drainage Extremities have not had neurologic change from prior to surgery. She has sustained dorsal flexion plantarflexion and EHL intact Calves and thighs were soft nontender without evidence of DVT. Assessment/Plan Postoperative day #1 status post minimally invasive decompression and fusion L5- S1 for her degenerative disc disease with stenosis Patient is progressing as expected from the surgery. We can reinforce the dressing as needed we'll plan to change for dry dressing tomorrow We will continue to increase the patient's mobilization with therapy. We will continue pain control with oral or IV medications. We'll continue to follow patient closely. Hopefully she'll be able to continue to mobilize and potentially be discharged home tomorrow or Friday
[2018-01-29] MEDS: CYCLOBENZAPRINE 10 MG TAB PO PRN (11:57)
[2018-01-29] MEDS: SENNOSIDES-DOCUSATE SODIUM 1 EACH TAB PO SCH (11:57)
[2018-01-29] MEDS ORDERED: CALCIUM CARBONATE 500 MG CHEWABLE PO PRN (14:58)
[2018-01-30] MEDS: CYCLOBENZAPRINE 10 MG TAB PO PRN (01:05)
[2018-01-30] MEDS: HYDROcodone/APAP 5-325MG 1 EACH TAB PO PRN ×2 (01:05→07:14)
[2018-01-30] MEDS: HYDROmorphone 1 MG/ML 1 ML SYRINGE IVP PRN (03:51)
[2018-01-30] MEDS: SODIUM CHLORIDE 0.9% 1,000 ML IV SCH ×2 (06:06→21:02)
[2018-01-30] MEDS: SENNOSIDES-DOCUSATE SODIUM 1 EACH TAB PO SCH (07:13)
[2018-01-30] MEDS: LACTATED RINGERS 1,000 ML IV SCH (07:14)
--- NOTE | 2018-01-30 08:37 | P.PN ---
Progress Note - Text Progress Note Date: 01/30/18 Orthopedic Spine Patient is a pleasant 37-year-old female who is seen and examined at the bedside following posterior lateral decompression and fusion performed Friday. Patient states they are doing ok postsurgically. She continues have pain at the surgical sites. She states her left lower extremity radiculopathy symptoms have improved postsurgically. She does feel her left leg feels heavy during ambulation. She has been able to ambulate to the restroom. She changes position on her own but has some difficulty due to pain. Currently does not complain of nausea, vomiting, fever, or chills. Patient states pain has been adequately controlled. Patient is eating and voiding freely without difficulty. She has not had a bowel movement but is passing gas. She denies any abdominal pain. She has been using her incentive spirometer. She continues to receive IV Dilaudid, [place] 5 mg/325 mg and Flexeril 10 mg for pain control. Physical Exam Lumbar Fusion: Status post surgical day number 2 Patient is awake, alert, and oriented 3 Vital signs stable Good chest excursion with deep inspiration and expiration Abdomen soft nontender Dorsiflexion, plantarflexion, and extensor hallucis longus positive sustained bilaterally No signs or symptoms of DVT; no calf pain; pneumatic cuffs not currently intact bilateral lower extremities Dressing is dry and intact some blood under the dressing; no erythema, purulence , or signs of infection Dressing is removed along with Steri-Strips strength physical examination No active drainage from the incision sites; no obvious sign of infection New nonstick Telfa and Tegaderm is placed Neurovascularly intact bilaterally lower extremities Assessment: L5-S1 Minimally invasive posterior lateral decompression and fusion with transforaminal lumbar interbody fusion Low back pain Left lower extremity radiculopathy Plan: 1. Ambulate as tolerated; work with Physical Therapy to increase mobilization 2. Continue pain control with IV and oral medications; will plan to increase Riverside from 5 mg/325 mg up to 7.5 mg/325 mg 1-2 tabs every 4 hours as needed for pain. We'll plan to start trying to decrease her Dilantin IV intake in anticipation for discharge home as early as tomorrow, 01/31/2018. 3. Dressing changed to Telfa and Tegaderm 4. Medical management can continue to manage patient for patient's other medical issues 5. We will continue to follow the patient closely 6. MAPS has been reviewed today. Overall overdose risk score: 190 An "Opioid Start Talking" form has been discussed with the patient. This form has been signed by the patient and myself. Prescriptions are written for [place] 7.5 mg/ 325 mg 1-2 tabs every 6 hours as needed for pain, dispense #56 and Flexeril 10 mg 1 tab 3 times a day as needed for muscle spasms, dispense #90 at discharge. These prescriptions have been signed and placed in the chart. 7. Patient can follow-up with Ceasar Craig PA-C or Dr. Desmond Sy at [facility] in 2-3 weeks following discharge
[2018-01-30] MEDS: HYDROcodone/APAP 7.5-325MG 1 EACH TAB PO PRN ×3 (12:12→21:06)
--- NOTE | 2018-01-30 14:45 | P.PN ---
Subjective Patient is a pleasant 37-year-old female underwent L5-S1, decompression and facet fusion procedure for her chronic low back pain with severe radiculopathy. No overnight events patient pain well-controlled did move her bowel and yesterday. Does have good bowel sounds. Objective - Vital Signs Vital signs: Vital Signs Temp 98.9 F 01/30/18 07:09 Pulse 81 01/30/18 07:09 Resp 14 01/30/18 07:09 BP 109/65 01/30/18 07:09 Pulse Ox 97 01/30/18 07:09 Intake & Output 01/29/18 01/30/18 01/30/18 18:59 06:59 18:59 Intake Total 600 787.5 600 Balance 600 787.5 600 Intake: Intake, IV Titration 600 787.5 600 Amount Sodium Chloride 0.9% 1, 600 787.5 600 000 ml @ 75 mls/hr IV . [id number] MIKE Rx#:[id number] Other: Voiding Method Toilet # Voids 2 3 - Exam PHYSICAL EXAMINATION: GENERAL: The patient is alert and oriented x3, not in any acute distress. Well developed, well nourished. HEENT: Pupils are round and equally reacting to light. EOMI. No scleral icterus. No conjunctival pallor. Normocephalic, atraumatic. No pharyngeal erythema. No thyromegaly. CARDIOVASCULAR: S1 and S2 present. No murmurs, rubs, or gallops. PULMONARY: Chest is clear to auscultation, no wheezing or crackles. ABDOMEN: Soft, nontender, nondistended, normoactive bowel sounds. No palpable organomegaly. MUSCULOSKELETAL: Deferred to orthopedic surgery EXTREMITIES: No cyanosis, clubbing, or pedal edema. NEUROLOGICAL: Gross neurological examination did not reveal any focal deficits. SKIN: No rashes. - Labs CBC & Chem 7: 01/29/18 06:39 01/29/18 06:39 Assessment and Plan Plan: -Perioperative hypotension: Expected postoperatively, which resolved now and no further recommendation from medical perspective can be discharged whenever it's appropriate from surgical perspective to -Status post lumbar laminectomy, decompression L5-S1 with facet fusion: Postoperative pain management and DVT prophylaxis as per primary service -Obesity: Dietary Counseling was provided
[2018-01-31] MEDS: HYDROcodone/APAP 7.5-325MG 1 EACH TAB PO PRN (05:26)
[2018-01-31] MEDS: LACTATED RINGERS 1,000 ML IV SCH (06:17)
[2018-01-31 08:22] VITALS: BP 104/66; PULSE 82; RESP 16; TEMP 98.9
--- NOTE | 2018-01-31 09:47 | P.DS ---
Providers Date of admission: 01/28/18 08:49 Expected date of discharge: 01/31/18 Attending physician: Imani Sy Consults: 01/28/18 13:41 Consult Physician Routine Consulting Provider: Padmini Hodges Consult Reason/Comments: Medical management Do you want consulting provider notified?: Yes Primary care physician: Stated None - Discharge Diagnosis(es) (1) Status post laminectomy with spinal fusion Current Visit: Yes Status: Acute (2) Degenerative disc disease at L5-S1 level Current Visit: Yes Status: Acute (3) Herniation of intervertebral disc between L5 and S1 Current Visit: Yes Status: Acute (4) Spondylisthesis Current Visit: Yes Status: Acute Hospital Course: This is a 37-year-old female with known history of spondylolisthesis L5-S1, degenerative disc disease L5-S1, low back and lower extremity radiculopathy and disc herniation of L5-S1. The patient presents for evaluation. After discussion and consideration patient elects to proceed with laminectomy and decompression of L5-S1. The patient is seen preoperatively by Dr. Sy and medically cleared for surgery by their primary care physician. Patient is admitted to [facility] on 01/28/2018 for laminectomy and decompression of L5-S1. The procedures performed without complication or sequelae. The patient is doing well postoperatively. Labs and vital signs are stable on day of discharge. On day of discharge the patient's lumbar incision is healing well. There is minimal erythema. There is no drainage noted at this time. There is minimal soft tissue swelling. Patient has full foot and ankle motion without difficulty or pain. Neurovascular status to bilateral lower extremities is intact. Patient is discharged home in good condition. Please see med rec for accurate list of home medications. Plan - Discharge Summary Discharge Rx Participant: Yes New Discharge Prescriptions: New HYDROcodone/APAP 7.5-325MG [[place] 7.5-325] 1 - 2 each PO Q6HR PRN #56 tab PRN Reason: Pain Cyclobenzaprine [Flexeril] 10 mg PO TID PRN #90 tab PRN Reason: Muscle Spasm No Action Ibuprofen 400 mg PO HS Discharge Medication List Ibuprofen 400 mg PO HS 01/19/18 [History] Cyclobenzaprine [Flexeril] 10 mg PO TID PRN #90 tab 01/30/18 [Rx] HYDROcodone/APAP 7.5-325MG [[place] 7.5-325] 1 - 2 each PO Q6HR PRN #56 tab [Rx] Follow up Appointment(s)/Referral(s): Imani Sy DO [Doctor of Osteopathic Medicine] - 02/10/18 2:30 pm Patient Instructions/Handouts: *Surgery [facility] - Scopalamine Patch Instructions Activity/Diet/Wound Care/Special Instructions: [facility] - [phone] - will deliver to bedside before discharge 1. Patient may shower with Tegaderm dressing intact. 2. Patient may remove Tegaderm dressing in 3 days and shower without a dressing at that time. 3. Patient should refrain from driving until at least after their first follow- up appointment in the office. 4. Patient should avoid excessive bending, twisting, and lifting; no lifting greater than 10 pounds 5. Take medications as prescribed 6. Do not soak in tub Discharge Disposition: HOME SELF-CARE
[2018-01-31] MEDS: SODIUM CHLORIDE 0.9% 1,000 ML IV SCH (10:18)
[2018-01-31] MEDS: SENNOSIDES-DOCUSATE SODIUM 1 EACH TAB PO SCH (10:18)
== END 2018-01-31 14:00 | disposition home or self-care (01) | DRG 455 ==
LOC: 2ORMAIN 08:49 → 3SUR 13:27
PROVIDERS: ADMIT Orthopaedic Surgery Orthopaedic Surgery of the Spine; ATTEND Orthopaedic Surgery Orthopaedic Surgery of the Spine
PROC: 0SG0071 Fusion of Lumbar Vertebral Joint with Autologous Tissue Substitute, Posterior Approach, Posterior Column, Open Approach (ICD-10-PCS; 2018-01-28)
PROC: 0ST40ZZ Resection of Lumbosacral Disc, Open Approach (ICD-10-PCS; 2018-01-28)
PROC: 07DS3ZZ Extraction of Vertebral Bone Marrow, Percutaneous Approach (ICD-10-PCS; 2018-01-28)
PROC: 4A11X4G Monitoring of Peripheral Nervous Electrical Activity, Intraoperative, External Approach (ICD-10-PCS; 2018-01-28)
PROC: 0SG30AJ Fusion of Lumbosacral Joint with Interbody Fusion Device, Posterior Approach, Anterior Column, Open Approach (ICD-10-PCS; principal; 2018-01-28 10:40)
DX: M43.17 Spondylolisthesis, lumbosacral region (principal); I95.9 Hypotension, unspecified; M51.17 Intervertebral disc disorders with radiculopathy, lumbosacral region; M48.07 Spinal stenosis, lumbosacral region; E66.9 Obesity, unspecified; Z68.33 Body mass index [BMI] 33.0-33.9, adult; Z71.3 Dietary counseling and surveillance; G89.29 Other chronic pain; Z79.1 Long term (current) use of non-steroidal anti-inflammatories (NSAID); Z87.891 Personal history of nicotine dependence; Z80.8 Family history of malignant neoplasm of other organs or systems
CPT/HCPCS: 72100; 80048; 85025; 86850; 86900; 86901

== ENCOUNTER → 2019-07-14 | Outpatient (CLI) | payer OTHER ==
--- NOTE | 2019-07-14 11:05 | XR ---
EXAMINATION TYPE: XR elbow complete RT DATE OF EXAM: 07/14/2019 COMPARISON: None HISTORY: Pain following fall one week prior TECHNIQUE: 3 views right elbow FINDINGS: The radius aligns normally with the humerus. Anterior fat pad is normal. No elevation poste rior fat pad is evident. No acute fractures or dislocations are evident. IMPRESSION: 1. Normal three-view right elbow
== END | disposition home or self-care (01) ==
LOC: RADXRMAIN 10:45
PROVIDERS: ATTEND Nurse Practitioner Women's Health
DX: M25.521 Pain in right elbow (principal); W01.198A Fall on same level from slipping, tripping and stumbling with subsequent striking against other object, initial encounter

== ENCOUNTER → 2019-07-23 | Outpatient (CLI) | payer OTHER ==
--- NOTE | 2019-07-23 23:37 | MR ---
EXAMINATION TYPE: MR lumbar spine wo/w con DATE OF EXAM: 07/23/2019 COMPARISON: 10/30/2017 HISTORY: Low back pain in [place] lower extremities CONTRAST: Standard multiplanar, multisequence MRI departmental protocol utilizing 9 mL intravenous Gadavist rhiannon olinium contrast. Lumbar vertebra have normal alignment. There is posterior fusion surgery at L5-S1. With metal artifac t. There is no spinal stenosis. There is mild narrowing of L5-S1 disc space. The other disc spaces appea r normal. There is no compression fracture. There is no lumbar paraspinal mass. The contrast images show no pathologic enhancement. I see no bony destructive process. Sacroiliac drake nts appear normal. Lumbar neural foramina are fairly well-maintained. IMPRESSION: Postsurgical changes. There is reduction of the small posterior disc herniation at L5-S1 compared to old exam. Minor degenerative disc changes at L5-S1. No complicating process seen.
== END | disposition home or self-care (01) ==
LOC: RADMRIMAIN 19:52
PROVIDERS: ATTEND Nurse Practitioner Women's Health
DX: M51.27 Other intervertebral disc displacement, lumbosacral region (principal); M47.817 Spondylosis without myelopathy or radiculopathy, lumbosacral region
CPT/HCPCS: 72158; A9585

== ENCOUNTER → 2019-09-16 | Outpatient (CLI) | payer OTHER ==
--- NOTE | 2019-09-16 10:33 | XR ---
EXAMINATION TYPE: XR lumbar spine 2 or 3V DATE OF EXAM: 09/16/2019 CLINICAL HISTORY: Status post arthrodesis. TECHNIQUE: Frontal and lateral images of the lumbar spine are obtained. COMPARISON: MRI lumbar spine July 23, 2019. FINDINGS: There are 5 lumbar type vertebral bodies redemonstrated. The lumbar spine shows stable an d satisfactory alignment without evidence of acute fracture or dislocation. Persistent posterior inte rpedicular rods and screws along with metallic cage L5-S1 level. Vertebral body heights and disc spac e heights above the L5 level are satisfactory. Cholecystectomy clips in the overlying soft tissue are seen. IMPRESSION: As above. No significant change from recent MRI.
== END | disposition home or self-care (01) ==
LOC: RADXRMAIN 10:18
DX: Z47.1 Aftercare following joint replacement surgery (principal); Z98.1 Arthrodesis status
CPT/HCPCS: 72100

== ENCOUNTER → 2020-10-17 | Outpatient (CLI) | payer OTHER ==
--- NOTE | 2020-10-18 07:06 | US ---
EXAMINATION TYPE: US transvaginal DATE OF EXAM: 10/17/2020 COMPARISON: NONE CLINICAL HISTORY: N92.0,N94.6,Z87.42. TECHNIQUE: Transvaginal (TV). Date of LMP: EXAM MEASUREMENTS: Uterus: 9.3 x 5.4 x 6.5 cm Endometrial Stripe: 0.7 cm Right Ovary: 3.1 x 2.1 x 1.8 cm Left Ovary: obscured by overlying bowel gas 1. Uterus: Anteverted 2. Endometrium: hyperechoic focus in endometrium measuring 0.6 x 0.3 x 0.5cm 3. Right Ovary: wnl 4. Left Ovary: Obscured by overlying bowel gas 5. Bilateral Adnexa: wnl 6. Posterior cul-de-sac: wnl IMPRESSION: Correlate for possible endometrial polyp. Otherwise unremarkable study.
== END | disposition home or self-care (01) ==
LOC: RADUSWWP 16:07
PROVIDERS: ATTEND Family Medicine
DX: N92.0 Excessive and frequent menstruation with regular cycle (principal)
CPT/HCPCS: 76830